=== PATIENT | male | born 1980 | race Caucasian/White ===

== ENCOUNTER 2020-04-26 07:11 | Emergency (ER) | payer OTHER ==
[~2020-04-26 07:11] MED LIST: FLOMAX0.4 MG PO; HYDROCODON-ACE1 EAC4 PO; KEFLEX250 MG PO; NORCO 5-325 TA1 EACH PO; SKELAXIN800 MG PO; VOLTAREN **OUT75 MG PO; ZOFRAN4 MG PO
[2020-04-26 08:09] LABS: BASOPHIL 0.5 % (0-2); EOSINOPHIL 4.1 % (0-5); HCT 52.7 % (42.0-52.0); LYMPHOCYTE 27.5 % (15-48); MCH 32.4 pg (25.0-31.0); MCHC 34.2 g/dL (32.0-36.0); MCV 94.8 fL (78.0-100.0); MONOCYTE 8.6 % (0-12); NRBC 0; PLT 202 K/uL (150-400); RBC 5.56 M/uL (4.70-6.00); RDW 12.2 % (11.5-14.0)
[2020-04-26 08:41] LABS: ALBUMIN 4.2 g/dL (3.4-5.0); BILIRUBIN - TOTAL 0.5 mg/dL (0.2-1.0); BUN/CREAT RATIO (CALC) 14.6 RATIO; CREATININE 0.82 mg/dL (0.67-1.17); GLOBULIN (CALCULATION) 3.3 g/dL; POTASSIUM 3.9 mmol/L (3.5-5.1); TOTAL PROTEIN 7.5 g/dL (6.4-8.2)
[2020-04-26] MEDS ORDERED: NORCO 5-325 TA1 EACH PO (09:09)
[2020-04-26] MEDS ORDERED: MEDROL 4MG DOSEP4 MG PO (09:09)
[2020-04-26] MEDS ORDERED: ROBAXIN750 MG PO (09:09)
== END 2020-04-26 09:24 | disposition home or self-care (01) ==
LOC: FER 07:11
PROVIDERS: Emergency Medicine
DX: M51.16 Intervertebral disc disorders with radiculopathy, lumbar region (principal); F17.210 Nicotine dependence, cigarettes, uncomplicated; Z98.890 Other specified postprocedural states
CPT/HCPCS: 36415; 72131; 80053; 85025; J1170; J1885; J2405

== ENCOUNTER 2020-07-23 08:17 | Emergency (ER) | payer OTHER ==
[~2020-07-23 08:17] MED LIST changes: +MEDROL 4MG DOSEP4 MG PO; +ROBAXIN750 MG PO
[2020-07-23] MEDS ORDERED: NORCO 5-325 TA1 EACH PO (08:54)
[2020-07-23] MEDS ORDERED: MEDROL 4MG DOSEP4 MG PO (08:54)
== END 2020-07-23 09:38 | disposition home or self-care (01) ==
LOC: FER 08:17
DX: M51.16 Intervertebral disc disorders with radiculopathy, lumbar region (principal); Z98.890 Other specified postprocedural states
CPT/HCPCS: 99283; J1170

== ENCOUNTER 2020-10-26 08:54 | Emergency (ER) | payer OTHER ==
[2020-10-26] MEDS ORDERED: DICLOFENAC SODI75 MG PO (10:35)
[2020-10-26] MEDS ORDERED: CYCLOBENZAPRINE10 MG PO (10:35)
== END 2020-10-26 10:42 | disposition home or self-care (01) ==
LOC: FER 08:54
DX: S39.012A Strain of muscle, fascia and tendon of lower back, initial encounter (principal); F17.210 Nicotine dependence, cigarettes, uncomplicated; Z90.49 Acquired absence of other specified parts of digestive tract; Z98.890 Other specified postprocedural states; X50.9XXA Other and unspecified overexertion or strenuous movements or postures, initial encounter
CPT/HCPCS: 96372; J1885; J3360

== ENCOUNTER 2020-10-28 08:19 | Emergency (ER) | payer OTHER ==
[~2020-10-28 08:19] MED LIST changes: +CYCLOBENZAPRINE10 MG PO; +DICLOFENAC SODI75 MG PO
[2020-10-28] MEDS ORDERED: PREDNISONE 20MG20 MG PO (09:17)
== END 2020-10-28 10:11 | disposition home or self-care (01) ==
LOC: FER 08:19
DX: M51.16 Intervertebral disc disorders with radiculopathy, lumbar region (principal); F17.210 Nicotine dependence, cigarettes, uncomplicated
CPT/HCPCS: 99283; J1885

== ENCOUNTER 2021-07-15 09:29 | Emergency (ER) | payer OTHER ==
[~2021-07-15 09:29] MED LIST changes: +PREDNISONE 20MG20 MG PO
[2021-07-15 09:56] LABS: BASOPHIL 0.6 % (0-2); EOSINOPHIL 4.1 % (0-5); HGB 18.1 g/dl (13.2-18.0); LYMPHOCYTE 22.8 % (15-48); MCH 33.5 pg (25.0-31.0); MCHC 34.8 g/dL (32.0-36.0); MCV 96.1 fL (78.0-100.0); MONOCYTE 6.6 % (0-12); MPV 11.1 fL (6.0-9.5); NEUTROPHIL 65.7 % (41-80); NRBC 0; PLT 198 K/uL (150-400); RBC 5.41 M/uL (4.70-6.00); RDW 12.1 % (11.5-14.0); WBC 8.7 K/uL (4.0-10.5)
[2021-07-15 10:11] LABS: BUN/CREAT RATIO (CALC) 12.3 RATIO; CREATININE 1.06 mg/dL (0.67-1.17); POTASSIUM 3.9 mmol/L (3.5-5.1)
[2021-07-15 10:15] LABS: BILIRUBIN 2+ mg/dL (NEGATIVE); BLOOD 3+ Ery/uL (NEGATIVE); CLARITY CLOUDY (CLEAR); COLOR RED (YELLOW); GLUCOSE (U) NORMAL (NORMAL); LEUKOCYTES TRACE Leu/uL (NEGATIVE); NITRITE POSITIVE (NEGATIVE); PROTEIN 3+ mg/dL (NEGATIVE); SPECIFIC GRAVITY >=1.030 (1.001-1.030); pH 6.5 (5.0-9.0)
[2021-07-15 10:18] LABS: BACTERIA 1+; SQUAMOUS EPITHELIAL CELLS RARE; URINARY RBC TNTC
[2021-07-15] MEDS ORDERED: FLOMAX 0.4 MG0.4 MG PO (10:52)
[2021-07-15] MEDS ORDERED: NORCO 5-325 TA1 EACH PO (10:52)
[2021-07-16] MEDS ORDERED: DICLOFENAC SODI75 MG PO (19:28)
[2021-07-16] MEDS ORDERED: ONDANSETRON HCL4 MG PO (19:28)
== END 2021-07-15 11:36 | disposition home or self-care (01) ==
LOC: FER 09:29
PROVIDERS: Emergency Medicine
DX: N13.2 Hydronephrosis with renal and ureteral calculous obstruction (principal)
CPT/HCPCS: 36415; 80048; 81001; 85025; J1170; J1885; J2405

== ENCOUNTER 2021-07-16 16:20 | Emergency (ER) | payer OTHER ==
[~2021-07-16 16:20] MED LIST changes: +FLOMAX 0.4 MG0.4 MG PO
[2021-07-16 18:15] LABS: BILIRUBIN 1+ mg/dL (NEGATIVE); BLOOD 3+ Ery/uL (NEGATIVE); COLOR YELLOW (YELLOW); GLUCOSE (U) NORMAL (NORMAL); LEUKOCYTES NEGATIVE Leu/uL (NEGATIVE); NITRITE NEGATIVE (NEGATIVE); PROTEIN 1+ mg/dL (NEGATIVE); UROBILINOGEN 0.2 mg/dL (0.2-1.0); pH 7.5 (5.0-9.0)
[2021-07-16 18:17] LABS: BASOPHIL 0.2 % (0-2); EOSINOPHIL 0.5 % (0-5); HCT 53.8 % (42.0-52.0); HGB 18.9 g/dl (13.2-18.0); LYMPHOCYTE 9.2 % (15-48); MCHC 35.1 g/dL (32.0-36.0); MCV 93.9 fL (78.0-100.0); MONOCYTE 6.6 % (0-12); MPV 11.3 fL (6.0-9.5); NRBC 0; PLT 206 K/uL (150-400); RBC 5.73 M/uL (4.70-6.00); RDW 11.9 % (11.5-14.0)
[2021-07-16 18:19] LABS: WBC 16.1 K/uL (4.0-10.5)
[2021-07-16 18:21] LABS: CLARITY SLIGHTLY HAZY (CLEAR)
[2021-07-16 18:22] LABS: BACTERIA TRACE; MUCOUS TRACE; URINARY RBC 20-50; URINARY WBC RARE
[2021-07-16 18:28] LABS: ALBUMIN 4.7 g/dL (3.4-5.0); BILIRUBIN - TOTAL 0.9 mg/dL (0.2-1.0); CREATININE 1.08 mg/dL (0.67-1.17); GLOBULIN (CALCULATION) 3.5 g/dL; POTASSIUM 3.6 mmol/L (3.5-5.1); TOTAL PROTEIN 8.2 g/dL (6.4-8.2)
[2021-07-16] MEDS ORDERED: ONDANSETRON HCL4 MG PO (19:28)
[2021-07-16] MEDS ORDERED: DICLOFENAC SODI75 MG PO (19:28)
[2021-07-17] MEDS ORDERED: PHENERGAN12.5 M1 PO (10:14)
== END 2021-07-16 19:35 | disposition home or self-care (01) ==
LOC: FER 16:20
PROVIDERS: Physician Assistant Medical
DX: N13.2 Hydronephrosis with renal and ureteral calculous obstruction (principal); F17.210 Nicotine dependence, cigarettes, uncomplicated; Z28.310 Unvaccinated for COVID-19
CPT/HCPCS: 36415; 80053; 81001; 85025; J1885; J2405; J7030

== ENCOUNTER 2021-07-17 07:26 | Emergency (ER) | payer OTHER ==
[~2021-07-17 07:26] MED LIST changes: +ONDANSETRON HCL4 MG PO
[2021-07-17 08:35] LABS: BASOPHIL 0.2 % (0-2); EOSINOPHIL 0 % (0-5); LYMPHOCYTE 9.2 % (15-48); MCH 32.8 pg (25.0-31.0); MCHC 35.3 g/dL (32.0-36.0); MCV 93.1 fL (78.0-100.0); MONOCYTE 6.9 % (0-12); MPV 11.2 fL (6.0-9.5); NEUTROPHIL 83.3 % (41-80); NRBC 0; PLT 181 K/uL (150-400); RBC 5.48 M/uL (4.70-6.00); RDW 11.8 % (11.5-14.0); WBC 15.2 K/uL (4.0-10.5)
[2021-07-17 08:49] LABS: ALBUMIN 4.4 g/dL (3.4-5.0); BILIRUBIN - TOTAL 0.8 mg/dL (0.2-1.0); BUN/CREAT RATIO (CALC) 12.8 RATIO; CREATININE 1.25 mg/dL (0.67-1.17); GLOBULIN (CALCULATION) 3.2 g/dL; POTASSIUM 3.6 mmol/L (3.5-5.1); TOTAL PROTEIN 7.6 g/dL (6.4-8.2)
[2021-07-17 09:56] LABS: BILIRUBIN NEGATIVE (NEGATIVE); BLOOD TRACE-INTACT Ery/uL (NEGATIVE); CLARITY CLEAR (CLEAR); COLOR YELLOW (YELLOW); GLUCOSE (U) NORMAL (NORMAL); LEUKOCYTES NEGATIVE Leu/uL (NEGATIVE); NITRITE NEGATIVE (NEGATIVE); PROTEIN TRACE (LOW) mg/dL (NEGATIVE); UROBILINOGEN 0.2 mg/dL (0.2-1.0); pH 8.5 (5.0-9.0)
[2021-07-17] MEDS ORDERED: PHENERGAN12.5 M1 PO (10:14)
[2021-07-17 10:30] LABS: URINARY WBC RARE
== END 2021-07-17 11:33 | disposition home or self-care (01) ==
LOC: FER 07:26
PROVIDERS: Emergency Medicine
DX: N13.2 Hydronephrosis with renal and ureteral calculous obstruction (principal); F17.200 Nicotine dependence, unspecified, uncomplicated; Z28.310 Unvaccinated for COVID-19
CPT/HCPCS: 36415; 80053; 81001; 84145; 85025; 87040; J1170; J2405; J2550